=== PATIENT | female | born 2000 | race Caucasian/White ===

== ENCOUNTER 2024-09-26 12:20 | Emergency (ER) | payer BC ==
[2024-09-26 13:15] LABS: Absolute Basophils 0.1 K/uL (0-0.5); Absolute Eosinophils 0.1 K/uL (0-0.5); Absolute Lymphocytes (CBC) 3.2 K/uL (0.7-4.9); Absolute Monocytes 0.5 K/uL (0.1-1.3); Basophils % 0.4 % (0-1.3); Eosinophils % 0.9 % (0-4.4); Hematocrit 42.1 % (36.0-45.0); Hemoglobin 14.5 g/dL (12.0-15.0); Lymphocytes % 24.9 % (15.3-44.8); MCH 28.3 pg (27.0-35.0); MCHC 34.3 g/dL (32.0-36.0); MCV 82.5 fL (80-100); MPV 8.8 fL (7.6-11.3); Monocytes % 3.6 % (3.3-12.3); Neutrophils % 70.2 % (41.7-73.7); Platelets 415 thou/uL (152-406); Red Cell Distribution Width 14.1 % (12.1-15.2)
[2024-09-26 13:51] LABS: Albumin 3.9 g/dL (3.4-5.0); Albumin/Globulin Ratio 0.9 (1.1-1.8); Anion Gap 14.3 mEq/L (5.0-15.0); Bilirubin Total 0.7 mg/dL (0.2-1.0); Globulin 4.4 g/dL (2.3-3.5); Potassium 3.3 mEq/L (3.5-5.1); Protein, Total 8.3 g/dL (6.4-8.2)
[2024-09-26 14:11] LABS: Specific Gravity 1.024 (1.005-1.030); Urine Bacteria <20 /HPF (<20); Urine Bilirubin NEGATIVE (Negative); Urine Blood 3+ (Negative); Urine Clarity Extremely Turbid (Clear); Urine Color Yellow (Yellow); Urine Crystals Unidentified Few /HPF (None Seen); Urine Culture Reflex Order REFLEXED; Urine Glucose NEGATIVE (Negative); Urine Ketones 2+ (Negative); Urine Microscopic Reflex YN ORDER UMIC; Urine Mucus 2+ /HPF (None Seen); Urine Nitrite NEGATIVE (Negative); Urine Protein 1+ (Negative); Urine RBC >50 /HPF (None Seen); Urine Urobilinogen Normal (Normal); Urine WBC 20-50 /HPF (<5)
--- NOTE | 2024-09-26 14:27 | RAD REPORT ---
EXAMINATION: CT ABDOMEN AND PELVIS WITHOUT CONTRAST CLINICAL INDICATION: left flank pain TECHNIQUE: CT abdomen and pelvis was performed, without IV contrast, as per department protocol. Axia l, sagittal and coronal reconstructions were obtained. One or more of the following dose reduction techniques were used: Automated exposure control, adjustment of the mA and kV according to the patien t size, and iterative reconstruction. Unless otherwise specified, incidental findings do not require dedicated imaging follow-up. COMPARISON: No prior exam. FINDINGS: The lack of intravenous contrast limits the sensitivity of this exam for evaluation of solid visceral organs, vascular structures, and retroperitoneum. LOWER CHEST: The visualized lung bases are clear. LIVER:Normal in size and contour. No focal lesion. Grossly unremarkable gallbladder. SPLEEN: Normal size. No focal lesion. PANCREAS: No mass, ductal dilation, or nancie-pancreatic fluid. ADRENALS: Normal; no mass. KIDNEYS AND URETERS: Normal size and contour. No hydronephrosis. URINARY BLADDER: Normal contour. GASTROINTESTINAL TRACT: No evidence of bowel obstruction, significant free fluid, free air or abscess . APPENDIX: Normal appendix. LYMPH NODES: No lymphadenopathy. MUSCULOSKELETAL: No acute or suspicious osseous abnormality. ADDITIONAL FINDINGS: None. IMPRESSION: No acute or concerning abnormalities in the abdomen or pelvis, with evaluation limited by lack of IV contrast.
[2024-09-26] MEDS ORDERED: CIPROFLOXACIN HCL 500 MG TAB ONE (14:50)
--- NOTE | 2024-09-26 14:51 | EDPHYS ---
Physician Documentation [facility] Name: Shirley Guadalupe Age: 24 yrs Sex: Female : 2000 Arrival Date: 09/26/2024 Time: 12:20 Bed 25 Private MD: ED Physician Kenton Hernandez HPI: 09/26 13:34 This 24 yrs old Female presents to ER via Ambulatory with complaints of Back Pain. rn 13:34 The patient presents with pain that is acute. The symptoms are located in the left mid rn back. Onset: The symptoms/episode began/occurred this morning. The pain radiates to the abdomen. Modifying factors: The patient symptoms are alleviated by nothing, the patient symptoms are aggravated by nothing. Severity of symptoms: At their worst the symptoms were moderate, in the emergency department the symptoms have improved. The patient has not experienced similar symptoms in the past. Denies history of kidney stones. No trauma or fall. No hematuria. No urinary symptoms. Denies .. 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 - Infectious Disease History:: Denies. - Social history:: Smoking status: Patient denies any tobacco usage or history of. - Family history:: not pertinent. - Hospitalizations: : No recent hospitalization is reported. ROS: 13:34 Constitutional: Negative for fever, chills, and weight loss, Cardiovascular: Negative rn for chest pain, palpitations, and edema, Respiratory: Negative for shortness of breath, cough, wheezing, and pleuritic chest pain, Abdomen/GI: Negative for abdominal pain, nausea, vomiting, diarrhea, and constipation, Back: Positive for left flank pain MS/Extremity: Negative for injury and deformity, Skin: Negative for injury, rash, and discoloration, Neuro: Negative for headache, weakness, numbness, tingling, and seizure, Exam: 13:34 Constitutional: This is a well developed, well nourished patient who is awake, alert, rn and in no acute distress. Ambulatory to room without difficulty or assistance Cardiovascular: Regular rate and rhythm. No pulse deficits. Respiratory: No increased work of breathing, no retractions or nasal flaring. Abdomen/GI: Soft, non-tender Back: No spinal tenderness. No costovertebral tenderness. Full range of motion. Vital Signs: 12:34 BP 107 / 74; Pulse 85; Resp 18; Temp 98; Pulse Ox 99% ; Weight 72.57 kg; Height 4 ft. 9 db in. ; 13:00 BP 114 / 56; Pulse 96; Resp 16; Pulse Ox 98% ; me1 14:00 BP 118 / 65; Pulse 104; Resp 17; Pulse Ox 96% ; me1 14:48 BP 112 / 77; Pulse 100; Resp 18; Temp 98.5; Pulse Ox 96% ; me1 12:34 Body Mass Index 34.62 (72.57 kg, 144.78 cm) db MDM: 12:22 Medical Screening Exam initiated rn 14:49 Differential diagnosis: Ureterolithiasis UTI, muscular pain, ovarian cyst. Data rn reviewed: vital signs, nurses notes, lab test result(s), radiologic studies, CT scan, and as a result, I will discharge patient. Counseling: I had a detailed discussion with the patient and/or guardian regarding the historical points, exam findings, and any diagnostic results supporting the discharge/admit diagnosis, lab results, radiology results, the need for outpatient follow up, to return to the emergency department if symptoms worsen or persist or if there are any questions or concerns that arise at home. Special discussion: I discussed with the patient/guardian in detail that at this point there is no indication for admission to the hospital. It is understood, however, that if the symptoms persist or worsen the patient needs to return immediately for re-evaluation. 09/26 12:46 Order name: CBC with Diff; Complete Time: 13:56 rn 09/26 12:46 Order name: CMP; Complete Time: 13:56 rn 09/26 12:46 Order name: Lipase; Complete Time: 13:56 rn 09/26 12:46 Order name: Test, Urine; Complete Time: 14: rn 09/26 12:46 Order name: Urinalysis w/ reflexes; Complete Time: 14: rn 09/26 14:18 Order name: Urine Culture EDIN 09/26 12:46 Order name: CT Stone Protocol; Complete Time: 14:34 rn 09/26 12:46 Order name: IV Saline Lock; Complete Time: 13:02 rn 09/26 12:46 Order name: Labs collected and sent; Complete Time: 13:02 rn Administered Medications: 14:51 Drug: Ciprofloxacin PO 500 mg PO once Route: PO; me1 14:56 Follow up: Response: No adverse reaction me1 Disposition Summary: 09/26/24 14:50 Discharge Ordered Notes: Location: Home rn Problem: new rn Symptoms: have improved rn Condition: Stable rn Diagnosis - UTI/ Urinary tract infection, site not specified rn Followup: rn - With: Private Physician - When: As needed - Reason: Recheck today's complaints, Re-evaluation by your physician Discharge Instructions: - Discharge Summary Sheet rn - Urinary Tract Infection, Adult rn Forms: - Medication Reconciliation Form rn - Antibiotic occupational health rn - Prescription Opioid Use rn - Patient Portal Instructions rn - Leadership Thank You Letter rn Prescriptions: - Cipro 500 mg Oral tablet - take 1 tablet ORAL route every 12 hours for 10 days; 20 tablet; Refills: 0, rn Product Selection Permitted - Tramadol 50 mg Oral Tablet - take 1 tablet ORAL route every 8 hours as needed; 12 tablet; Refills: 0, rn Product Selection Permitted Signatures: Dispatcher [employer] EDMS Kenton Hernandez MD MD rn Benton, Danielle RN RN db Ronda Magana RN RN me1 Corrections: (The following items were deleted from the chart) 12:46 12:46 CBC+H.LAB.BRZ ordered. EDMS EDMS 12:46 12:46 COMPREHENSIVE METABOLIC PANEL+C.LAB.BRZ ordered. EDMS EDMS 12:46 12:46 LIPASE+C.LAB.BRZ ordered. EDMS EDMS 12:47 12:46 Test, Urine+UC.LAB.BRZ ordered. EDMS EDMS 12:47 12:46 Urinalysis+U.LAB.BRZ ordered. EDMS EDMS 12:47 12:47 Stone Protocol+CT.RAD.BRZ ordered. EDMS EDMS
--- NOTE | 2024-09-26 14:51 | ER ---
Nurse's Notes [facility] Name: Shirley Guadalupe Age: 24 yrs Sex: Female : 2000 Arrival Date: 09/26/2024 Time: 12:20 Bed 25 Private MD: Diagnosis: UTI/ Urinary tract infection, site not specified Presentation: 09/26 12:32 Chief complaint: Patient states: LEFT FLANK PAIN STARTED THIS AM RADIATES TO THE FRONT db ABD. DENIES N/V. COMPLAINS OF FLANK TENDERNESS. DENIES URINARY SYMPTOMS. Coronavirus screen: Client denies travel out of the [place] in the last 14 days. At this time, the client does not indicate any symptoms associated with coronavirus-19. Ebola Screen: Patient negative for fever greater than or equal to 101.5 degrees Fahrenheit, and additional compatible Ebola Virus Disease symptoms Patient denies exposure to infectious person. Patient denies travel to an Ebola-affected area in the 21 days before illness onset. No symptoms or risks identified at this time. Initial Sepsis Screen: Does the patient meet any 2 criteria? No. Patient's initial sepsis screen is negative. Does the patient have a suspected source of infection? No. Patient's initial sepsis screen is negative. 12:32 Method Of Arrival: Ambulatory db 12:34 Risk Assessment: Do you want to hurt yourself or someone else? Patient reports no db desire to harm self or others. Onset of symptoms was September 26, 2024. 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 - Infectious Disease History:: Denies. - Social history:: Smoking status: Patient denies any tobacco usage or history of. - Family history:: not pertinent. - Hospitalizations: : No recent hospitalization is reported. Screenin:09 [facility] ED Fall Risk Assessment (Adult) History of falling in the last 3 months, me1 including since admission No falls in past 3 months (0 pts) Confusion or Disorientation No (0 pts) Intoxicated or Sedated No (0 pts) Impaired Gait No (0 pts) Mobility Assist Device Used No (0 pt) Altered Elimination No (0 pt) Score/Fall Risk Level 0 - 2 = Low Risk Maintained a safe environment, Provided non-skid footwear, Hourly rounding (assess needs \T\ fall precautionary measures) done. Abuse screen: Denies threats or abuse. Nutritional screening: No deficits noted. Tuberculosis screening: No symptoms or risk factors identified. Assessment: 13:09 General: Appears in no apparent distress. Behavior is calm, cooperative, appropriate me1 for age, Reports left flank pain that radiates to abdomen, started this morning. 3/10 now, 9/10 at worst. Denies nausea and urinary symptoms. Pain: Complains of pain in posterior aspect of left lateral abdomen Pain radiates to left lower quadrant Pain currently is 3 out of 10 on a pain scale. at worst was 9 out of 10 on a pain scale. Quality of pain is described as sharp, Pain began suddenly, Is continuous. Neuro: Level of Consciousness is awake, alert, obeys commands, Oriented to person, place, time, situation, Appropriate for age. Cardiovascular: Patient's skin is warm and dry. Respiratory: Airway is patent Respiratory effort is even, unlabored, Respiratory pattern is regular, symmetrical. GI: No signs and/or symptoms were reported involving the gastrointestinal system. : Reports pain in left flank(s), lower quadrant(s) Denies burning with urination, urinary frequency. EENT: No signs and/or symptoms were reported regarding the EENT system. Derm: Skin is intact, is healthy with good turgor, Skin is pink, warm \T\ dry. Musculoskeletal: No signs and/or symptoms reported regarding the musculoskeletal system. Vital Signs: 12:34 BP 107 / 74; Pulse 85; Resp 18; Temp 98; Pulse Ox 99% ; Weight 72.57 kg; Height 4 ft. 9 db in. ; 13:00 BP 114 / 56; Pulse 96; Resp 16; Pulse Ox 98% ; me1 14:00 BP 118 / 65; Pulse 104; Resp 17; Pulse Ox 96% ; me1 14:48 BP 112 / 77; Pulse 100; Resp 18; Temp 98.5; Pulse Ox 96% ; me1 12:34 Body Mass Index 34.62 (72.57 kg, 144.78 cm) db ED Course: 12:22 Patient arrived in ED. mr 12:22 Hernandez, Kenton, MD is Attending Physician. rn 12:34 Arm band placed on Patient placed in waiting room. db 12:35 Triage completed. db 12:45 Ronda Magana, RN is Primary Nurse. me1 13:02 Initial lab(s) drawn, by me, sent to lab. Inserted saline lock: 22 gauge in left mn1 antecubital area, using aseptic technique. 13:02 CBC with Diff Sent. me1 13:02 CMP Sent. me1 13:02 Lipase Sent. me1 13:09 Patient has correct armband on for positive identification. Bed in low position. Call mn1 light in reach. Side rails up X 1. Provided Education on: POC. Verbalized understanding.. Client placed on continuous cardiac and pulse oximetry monitoring. NIBP monitoring applied. Pulse ox on. NIBP on. 13:09 No provider procedures requiring assistance completed. me1 13:56 Urinalysis w/ reflexes Sent. me1 13:56 Test, Urine Sent. me1 13:56 Urine collected: clean catch specimen, cloudy, nathaniel colored. me1 14:20 CT Stone Protocol In Process Unspecified. EDHI 14:56 IV discontinued, intact, bleeding controlled, No redness/swelling at site. Pressure me1 dressing applied. Administered Medications: 14:51 Drug: Ciprofloxacin PO 500 mg PO once Route: PO; me1 14:56 Follow up: Response: No adverse reaction me1 Medication: 13:09 VIS not applicable for this client. me1 Outcome: 14:50 Discharge ordered by . rn 14:56 Discharged to home ambulatory, with significant other, me1 14:56 Condition: stable 14:56 Discharge instructions given to patient, significant other, Instructed on discharge instructions, follow up and referral plans. medication usage, Demonstrated understanding of instructions, follow-up care, medications, Prescriptions given X 2, 14:57 Patient left the ED. me1 Signatures: Dispatcher [employer] [facility] Miriam Fried, Reg Reg mr Kenton Hernandez MD MD rn Benton, Danielle, Ronda Mahoney RN, JEAN RN me1
[2024-09-26 15:09] VITALS: O2SAT 96
[2024-09-26 15:10] VITALS: BP 112/77; TEMP 98.5
== END 2024-09-26 14:57 | disposition home or self-care (01) ==
LOC: ER 12:20
DX: N39.0 Urinary tract infection, site not specified (principal)
CPT/HCPCS: 36415; 74176; 76377; 80053; 81001; 81025; 83690; 85025; 87086; 87088; 99284